=== PATIENT | female | born 1995 | race Caucasian/White ===

== ENCOUNTER 2022-02-28 17:43 | Emergency (ER) | payer SELFPAY ==
[2022-02-28] MEDS ORDERED: Fentanyl 100 MCG/2 ML VIAL ONE (18:37)
[2022-02-28] MEDS ORDERED: Ketorolac Tromethamine 30 MG/ML VIAL ONE (18:38)
[2022-02-28] MEDS ORDERED: Dexamethasone 10 MG/ML VIAL ONE (18:38)
[2022-02-28] MEDS ORDERED: Clindamycin/D5W 900 MG in Premix Bag 1 BAG IVPB SCH (18:45)
== END 2022-02-28 19:50 | disposition home or self-care (01) ==
LOC: CSHERS 17:43
DX: K04.7 Periapical abscess without sinus (principal); F17.210 Nicotine dependence, cigarettes, uncomplicated
CPT/HCPCS: 96374; 96375; J1100; J1885; J3010; J3490

== ENCOUNTER 2022-03-05 07:19 | Emergency (ER) | payer SELFPAY ==
[2022-03-05] MEDS ORDERED: Acetaminophen 500 MG TAB ONE (07:53)
[2022-03-05] MEDS ORDERED: Ketorolac Tromethamine 30 MG/ML VIAL ONE (07:53)
[2022-03-05 08:12] LABS: #Basophils 0.1 10x3/uL (0.0-0.2); #Eosinphils 0.7 10x3/uL (0.0-0.5); #Monocytes 0.9 10x3/uL (0.0-1.1); #Neutrophils 6.9 10x3/uL (1.5-8.4); %Basophils 0.9 % (0.0-2.0); %Eosinophils 5.9 % (0.0-6.0); %Lymphocytes 23.4 % (18.0-47.0); %Monocytes 8.1 % (0.0-10.0); %Neutrophils 61.4 % (40.0-75.0); Hemoglobin 13.9 g/dL (12.0-15.5); Mean Corpuscular HGB CONC 33.5 g/dL (32.0-36.0); Mean Corpuscular Hemoglobin 28.2 pg (27.0-33.0); Mean Corpuscular Volume 84.2 fl (81.6-98.3); Mean Platelet Volume 10.1 fl (7.4-10.4); Platelet Count 307 10x3/uL (150-450); RBC Distribution Width 13.1 % (11.5-14.5); Red Blood Cell (RBC) Count 4.93 10x6/uL (3.90-5.03); White Blood Cell (WBC) Count 11.2 10x3/uL (3.5-10.5)
[2022-03-05 08:15] LABS: BHCG - Serum Negative (NEGATIVE); Pregs Control Background? CLEAR/WHITE (CLR/WHITE); Pregs Control Bar Appear? YES (CONTROL BAR)
[2022-03-05 08:22] LABS: ALT (SGPT) 46 U/L (8-55); AST (SGOT) 25 U/L (5-34); Albumin 4.2 g/dL (3.5-5.0); Alkaline Phosphatase 69 U/L (40-110); Anion Gap 12 mmol/L (10-20); BUN (Urea Nitrogen) 14 mg/dL (7.0-18.7); Bilirubin, Total 0.4 mg/dL (0.2-1.2); Calc. Creatinine Clearance 0 mL/min (70-130); Calcium 9.6 mg/dL (7.8-10.44); Carbon Dioxide 25 mmol/L (22-29); Chloride 104 mmol/L (98-107); Estimated GFR 109; Glucose 90 mg/dL (70-105); Potassium 3.9 mmol/L (3.5-5.1); Protein, Total 7.2 g/dL (6.0-8.3); Sodium 137 mmol/L (136-145)
[2022-03-05] MEDS ORDERED: Ipratropium Bromide 2.5 ml Neb ONE (10:00)
[2022-03-05] MEDS ORDERED: Albuterol Sulfate 2.5 mg/0.5 ml Neb ONE (10:01)
== END 2022-03-05 11:59 | disposition home or self-care (01) ==
LOC: CSHERS 07:19
DX: R07.9 Chest pain, unspecified (principal); M54.9 Dorsalgia, unspecified; F17.210 Nicotine dependence, cigarettes, uncomplicated
CPT/HCPCS: 71045; 71275; 80053; 84703; 85025; 85379; 94644; 94760; 96374; J1885; J7611

== ENCOUNTER 2025-02-15 13:50 | Emergency (ER) | payer SELFPAY ==
[2025-02-15] MEDS ORDERED: Iopamidol 300 61% 100 ML VIAL FS ONE (14:13)
[2025-02-15 14:47] LABS: #Basophils 0.05 10x3/uL (0.0-0.2); #Eosinophils 0.29 10x3/uL (0.0-0.5); #Monocytes 1.13 10x3/uL (0.0-1.1); #Neutrophils 7.53 10x3/uL (1.5-8.4); %Basophils 0.5 % (0.0-2.0); %Eosinophils 2.6 % (0.0-6.0); %Lymphocytes 17.8 % (18.0-47.0); %Monocytes 10.3 % (0.0-10.0); %Neutrophils 68.5 % (40.0-75.0); Hematocrit 39.2 % (34.9-44.5); Hemoglobin 12.7 g/dL (12.0-15.5); Mean Corpuscular Hemoglobin 28.5 pg (27.0-33.0); Mean Corpuscular Volume 87.9 fL (81.6-98.3); Platelet Count 268 10x3/uL (150-450); Red Blood Cell (RBC) Count 4.46 10x6/uL (3.90-5.03); White Blood Cell (WBC) Count 10.99 10x3/uL (3.5-10.5)
[2025-02-15 15:06] LABS: ALT (SGPT) 52 U/L (Less than 34); AST (SGOT) 28 U/L (11-34); Albumin 4.2 g/dL (3.1-4.5); Alkaline Phosphatase 68 U/L (40-110); Anion Gap 12 mmol/L (10-20); BUN (Urea Nitrogen) 10 mg/dL (7.0-18.7); Bilirubin, Total 0.3 mg/dL (0.3-1.2); Calc. Creatinine Clearance 0 mL/min (70-130); Calcium 9.4 mg/dL (7.8-10.44); Carbon Dioxide 28 mmol/L (22-29); Chloride 103 mmol/L (98-107); Globulin 3.3 g/dL (2.4-3.5); Glucose 82 mg/dL (70-105); Lipase 18 U/L (8-78); Potassium 3.7 mmol/L (3.5-5.1); Sodium 139 mmol/L (136-145)
[2025-02-15 15:16] LABS: BHCG - Serum Negative (NEGATIVE); Pregs Control Background? CLEAR/WHITE (CLR/WHITE); Pregs Control Bar Appear? YES (CONTROL BAR)
[2025-02-15 15:23] LABS: Glucose, Urine (Dipstick) Normal (Negative); Leukocyte Negative (Negative); Protein, Urine (Dipstick) Negative (Neg-Trace); Specific Gravity, Urine 1.015 (1.005-1.030)
[2025-02-15 15:54] LABS: Bacteria/HPF None Seen HPF (None Seen); CAUTI Indications for Culture Pelvic or flank pain; RBC/HPF None Seen HPF (0-3); WBC/HPF 0-3 HPF (0-3)
[2025-02-15 15:55] LABS: Urine Culture Reflex No No
[2025-02-16 01:10] LABS: Chlamydia by PCR, Vaginal Swab Not Detected (NotDetected); GC by PCR, Vaginal Swab Not Detected (NotDetected)
== END 2025-02-15 16:56 | disposition home or self-care (01) ==
LOC: CSHERS 13:50
DX: N83.11 Corpus luteum cyst of right ovary (principal); N94.10 Unspecified dyspareunia; F17.290 Nicotine dependence, other tobacco product, uncomplicated
CPT/HCPCS: 36415; 74177; 76856; 80053; 81001; 83690; 84703; 85025; 87480; 87491; 87510; 87591; 87660